=== PATIENT | female | born 1985 | race Caucasian/White ===

== ENCOUNTER 2018-08-14 18:37 | Emergency (ER) | END 2018-08-14 19:50 | disposition home or self-care (01) ==

== ENCOUNTER 2018-11-08 17:41 | Outpatient (CLI) | payer BC ==
[~2018-11-08] VITALS: Ht 157.5 cm; Wt 82.7 kg
[~2018-11-08 17:41] MED LIST: FERR140T3 PO; PREN1TAB62 PO
[2018-11-08 17:57] VITALS: Ht 157.5 cm; Wt 82.7 kg
[2018-11-08 17:58] VITALS: BP 114/69; PULSE 79; RESP 17
--- NOTE | 2018-11-08 21:45 | PN ---
Triage Information Date/Time Nov 08, 2018 Reason for visit: Abd/pelvic pain Weeks of Gestation 20w 6d /Para 8/3 Diabetes: none Hypertention: none Additional information Pt states she has had this pain before she delivered previously, but stronger. She says the pain started at 1100 today and went back and forth between 3/10 and 5/10 pain but was usually mild. Pt reports she has one spot of blood every 2 days for weeks. She reports one this AM. Her last BM was last night. She last had intercourse 2 days ago. She states she was on various buses travelling all day today from 8AM to 5PM. She says she has a DCFS case pending and went to a parenting class today and had another one tonight but missed it in order to come in. She says the pain is equal right = left in the lower abdomen. PMHx: none. PSHx: x 3. NKDA. Objective Vital Signs Date Temp Pulse Resp B/P (MAP) Pulse Ox O2 O2 Flow FiO2 Time Delivery Rate 11/08/18 98.4 79 17 114/69 17:58 (84) Heart Rate: 150's Contractions: None Exam Pt appears very comfortable, is smiling while she talks. Abdomen completely soft and NT and there is no rebound. Uterus is soft to palpation. Deferred pelvic exam. Results/Medications Result Diagram: 11/08/18 1836 Results 24 hrs Laboratory Tests Test 11/08/18 18:00 11/08/18 18:36 Urine Color YELLOW Urine Clarity SLIGHTLY CLOUDY A Urine pH 5.0 Urine Specific [place] 1.027 Urine Ketones 2+ H Urine Nitrite NEGATIVE Urine Bilirubin NEGATIVE Urine Urobilinogen NEGATIVE Urine Leukocyte Esterase TRACE A Urine Microscopic RBC 0 Urine Microscopic WBC 4 Urine Squamous Epithelial Cells FEW Urine Bacteria FEW A Urine Mucus MANY A Urine Hemoglobin NEGATIVE Urine Glucose NEGATIVE Urine Total Protein NEGATIVE White Blood Count 9.4 Red Blood Count 3.72 L Hemoglobin 11.9 L Hematocrit 34.7 L Mean Corpuscular Volume 93.3 Mean Corpuscular Hemoglobin 32.0 Mean Corpuscular Hemoglobin Concent 34.3 Red Cell Distribution Width 12.4 Platelet Count 255 Mean Platelet Volume 11.3 H Immature Granulocytes % 0.400 Neutrophils % 69.9 Lymphocytes % 19.0 Monocytes % 6.6 Eosinophils % 3.7 Basophils % 0.4 Nucleated Red Blood Cells % 0.0 Immature Granulocytes # 0.040 H Neutrophils # 6.6 Lymphocytes # 1.8 Monocytes # 0.6 Eosinophils # 0.4 Basophils # 0.0 Nucleated Red Blood Cells # 0.0 Imaging Results US: CX long and closed and 4.7 cm long. Anterior placenta. No previa. Disposition: Discharge Assessment/Plan A: IUP at 20w 6d. Abdominal pain of unclear etiology. P: Pt feels very comfortable going home and is asking for something to eat prior to going home and appears very comfortable. Reviewed with pt that labs and US appear normal and there is no evidence of infection, or labor. May return if the pain increases and becomes constantly more severe. RAMON PEACE MD Nov 08, 2018 21:25
--- NOTE | 2018-11-08 23:08 | TRIAGE ---
OB Triage Datetime Report Generated by CPN: 11/08/2018 23:08 Datetime: 11/08/2018 20:30 Stage of : OB Triage Datetime: 11/08/2018 19:36 Stage of : OB Triage Monitor Mode: External Duration (sec)2399: 10sec Quality: Mild Pattern: Normal: <= 5 Contractions in 10 Minutes Resting Tone [place]: Relaxed Pain Assessment Pain Scale: 4 Pain Presence: Constant Pain Type: Stabbing Pain Location: Abdomen Datetime: 11/08/2018 18:52 Labor Evaluation Frequency: x3 Monitor Mode: External Duration (sec)2399: 30 Quality: Mild Pattern: Normal: <= 5 Contractions in 10 Minutes Resting Tone [place]: Relaxed Datetime: 11/08/2018 17:52 Heart Rate Comments: fhr 150 by us Datetime: 11/08/2018 17:50 Assessment Type: Triage Maternal Assessment Level of Consciousness: Fully Conscious DTR's/Clonus: DTRs 2+; No Clonus Headache: Denies Blurred Vision: No Respiratory Effort: Unlabored; Regular Rhythm; Equal Expansion Breath Sounds, Left: Clear and Equal Breath Sounds, Right: Clear and Equal Nausea/Vomiting: Denies RUQ Epigastric Pain: Denies Lower Extremities Edema: None Degree: None Upper Extremities Edema: None Degree: None Facial Edema: None Fall Risk Assessment History of Falling: (0) No Secondary Diagnosis: (0) No Ambulatory Aid: (0) Bedrest/Nurse Assist IV Therapy: (0) No Gait: (0) Normal/Bedrest/Immobile Mental Status: (0) Oriented to Own Ability Fall Score: 0 Fall Risk Score Definition: No Risk: No action required Datetime: 11/08/2018 17:49 Time of Arrival: 11/08/2018 17:32 EGA: 20.6 Arrived By: Ambulatory Arrived From: Home Chief Complaint: To ob triage c/o lower abdominal constant pain since 1100 am Movement: Present Contractions: Denies/Absent Rupture of Membranes: Denies Vaginal Bleeding: None Vaginal Discharge: Denies Recent Sexual Intercouse: Denies Abdominal Trauma: Not Applicable Patient Complaints: Other Time Provider Notified: 11/08/2018 18:00 Provider Notified: Dr Short Initial Plan: r/o ptl
== END 2018-11-08 21:37 | disposition home or self-care (01) ==
LOC: OBT 17:41 → L-D 17:42 → OBT 21:37
PROVIDERS: ATTEND Obstetrics & Gynecology
DX: O26.892 Other specified pregnancy related conditions, second trimester (principal); R10.2 Pelvic and perineal pain; Z3A.20 20 weeks gestation of pregnancy
CPT/HCPCS: 76817; 81001; 85025; 87086; Z7500; G0463

== ENCOUNTER 2019-02-07 18:13 | Inpatient (IN) | payer BC ==
[~2019-02-07] VITALS: Ht 152.4 cm; Wt 82.9 kg
--- NOTE | 2019-02-07 19:04 | HP ---
Date/Time of Note Date/Time of Note DATE: 02/07/19 TIME: 19:00 OB - History Hx of Present Chief Complaint: Elevated BP in clinic Estimated Due Date: March 16, 2019 : 10 Para: 3 Spontaneous : 3 Therapeutic : 3 Care: Good Care Ultrasounds: Normal mid trimester US Obstetrical Complications: None Medical Complications: None Past Family/Social History * Past Medical, Surgical, Family and Obstetric Histories reviewed from chart. OB Admission Exam Physical Exam HEENT: WNL Heart: Rhythm Normal Lungs: Clear, Equal Abdomen: WNL Extremities: Normal Reflexes: Normal Heart Rate: 120's Accelerations: Accelerations Present Decelerations: No Decelerations Varibility: Moderate Contractions on Admission: < 5 Minutes Apart OB Assessment/Plan Reason for admission: other Other Assessment: R/ O preeclampsia R/O labor Other plan: Admit PIH labs 24 hour urine collection IM betamethasone IV magnesium sulfate KALEB HANNA MD Feb 07, 2019 19:03
[2019-02-07 19:05] VITALS: BP 143/92; PULSE 72; RESP 17; Ht 152.4 cm; Wt 82.9 kg
[2019-02-07] MEDS ORDERED: MAGNESIUM SULFATE 4 GM/100 ML 100 ML IV SCH (19:30)
[2019-02-07] MEDS: LACTATED RINGER'S 1,000 ML IV SCH (21:38)
[2019-02-07] MEDS: BETAMET NA PHOS/AC(6 MG/ML) 2 ML INJ SYG IM SCH (21:41)
[2019-02-07] MEDS: MAGNESIUM SULFATE 20 GM/500 ML 500 ML IV SCH (22:15)
[2019-02-08] MEDS: LACTATED RINGER'S 1,000 ML IV SCH ×3 (03:06→21:13)
[2019-02-08] MEDS: MAGNESIUM SULFATE 20 GM/500 ML 500 ML IV SCH ×2 (06:27→18:28)
[2019-02-08] MEDS: FERROUS SULFATE (SR) 142 MG TAB PO SCH ×2 (08:57→21:57)
[2019-02-08] MEDS: PRENATAL VITAMIN PO SCH (08:57)
[2019-02-08] MEDS: BETAMET NA PHOS/AC(6 MG/ML) 2 ML INJ SYG IM SCH (21:57)
--- NOTE | 2019-02-08 22:31 | QN ---
Documentation Comment No complaint Afebrile VS Strip Reactive Continue with present care Await result of 24 hour urine collection Repeat labs in AM. KALEB HANNA MD Feb 08, 2019 22:31
[2019-02-09] MEDS: LACTATED RINGER'S 1,000 ML IV SCH ×7 (03:06→20:34)
[2019-02-09] MEDS: FERROUS SULFATE (SR) 142 MG TAB PO SCH ×2 (08:22→21:00)
[2019-02-09] MEDS: PRENATAL VITAMIN PO SCH (08:22)
[2019-02-09] MEDS ORDERED: OXYTOCIN 30 UNITS/LR 500 ML IV PRN ×3 (12:30→23:30)
[2019-02-09] MEDS ORDERED: CARBOPROST 250 MCG INJ IM PRN ×3 (12:30→23:30)
[2019-02-09] MEDS ORDERED: OXYTOCIN 30 UNITS/LR 500 ML IV SCH ×2 (12:30→23:06)
[2019-02-09] MEDS ORDERED: MISOPROSTOL 200 MCG TAB PR PRN ×3 (12:30→23:30)
[2019-02-09] MEDS ORDERED: CEFAZOLIN 2 GM/50 ML (PMX) 50 ML IVPB SCH (12:30)
[2019-02-09] MEDS ORDERED: METHYLERGONOVINE 0.2 MG INJ IM PRN ×2 (12:30)
[2019-02-09] MEDS ORDERED: AMPICILLIN 2 GM/NS (PMX) 100 ML IV SCH (12:30)
[2019-02-09] MEDS ORDERED: AZITHROMYCIN 500MG/NS (PMX) 250 ML IV SCH (12:30)
--- NOTE | 2019-02-09 15:47 | PREAC ---
Date/Time of Note Date/Time of Note DATE: 02/09/19 TIME: 15:46 Anesthesia Eval and Record Evaluation Time Pre-Procedure Interview DATE: 02/09/19 TIME: 15:46 Age 33 Sex female NPO: 8 hrs Preoperative diagnosis iup at 34 weeks with pih Planned procedure repeat c section Past Medical History Past Medical History: Includes GI: Obesity : PIH Surgery & Anesthesia Issues No known issue Meds Anticoagulation: No Beta Raiza within 24 hr: No Reason Beta Raiza not given: Pt. not on B-Raiza Reported Medications Ferrous Sulfate* (Ferrous Sulfate*) 140 Mg Tablet.er, 140 MG PO BID 05/05/13 Vit-Iron Fumarate-FA ( Vitamin Tablet) 1 Each Tablet, 1 EACH PO 05/05/13 Current Medications Lactated Ringer's 1,000 ml @ 125 mls/hr Q8H IV Last administered on 02/09/19at 14:10; Admin Dose 125 MLS/HR; Start 02/07/19 at 19:06 Ferrous Sulfate (Slow Fe) 142 mg BID PO Last administered on 02/09/19at 08:22; Admin Dose 142 MG; Start 02/08/19 at 09:00 Prenat Multivit/ [place]/Iron/Folic Ac () 1 tab DAILY PO Last administered on 02/09/19at 08:22; Admin Dose 1 TAB; Start 02/08/19 at 09:00 Lactated Ringer's 1,000 ml @ 125 mls/hr Q8H IV ; Start 02/09/19 at 12:06 Cefazolin Sodium/ Dextrose 50 ml @ 100 mls/hr ONCE IVPB ; Start 02/09/19 at 12:30 Oxytocin/Lactated Ringer's 500 ml @ 125 mls/hr POST IV ; Start 02/09/19 at 12:30 Oxytocin/Lactated Ringer's 500 ml @ 0 mls/hr ONCE PRN IV .VAGINAL BLEEDING; Start 02/09/19 at 12:30 Methylergonovine Maleate (Methergine) 0.2 mg ONCE PRN IM .VAGINAL BLEEDING; Start 02/09/19 at 12:30 Carboprost Tromethamine (Hemabate) 250 mcg ONCE PRN IM .VAGINAL BLEEDING; Start 02/09/19 at 12:30 Misoprostol (Cytotec) 1,000 mcg ONCE PRN [place] .VAGINAL BLEEDING; Start 02/09/19 at 12:30 Lactated Ringer's 1,000 ml @ 125 mls/hr Q8H IV ; Start 02/09/19 at 12:15 Ampicillin 100 ml @ 100 mls/hr ONCE IV ; Start 02/09/19 at 12:30 Azithromycin 250 ml @ 250 mls/hr ONCE IV ; Start 02/09/19 at 12:30 Oxytocin/Lactated Ringer's 500 ml @ 0 mls/hr ONCE PRN IV .VAGINAL BLEEDING; Start 02/09/19 at 12:30 Methylergonovine Maleate (Methergine) 0.2 mg ONCE PRN IM .VAGINAL BLEEDING; Start 02/09/19 at 12:30 Carboprost Tromethamine (Hemabate) 250 mcg ONCE PRN IM .VAGINAL BLEEDING; Start 02/09/19 at 12:30 Misoprostol (Cytotec) 1,000 mcg ONCE PRN [place] .VAGINAL BLEEDING; Start 02/09/19 at 12:30 Meds reviewed: Yes Allergies Coded Allergies: No Known Drug Allergies (Verified Allergy, Mild, 02/26/12) Allergies Reviewed: Yes Labs/Studies Labs Reviewed: Reviewed by anesthesiologist Result Diagram: 02/09/19 0431 02/09/19 0431 Laboratory Tests 02/09/19 04:31 Blood Bank Test 02/09/19 13:00 Antibody Screen NEGATIVE Blood Type B POSITIVE Rh Immune Globulin Candidate NO test: Positive Pre-procedure Exam Last vitals Vital Signs Date Temp Pulse Resp B/P (MAP) Pulse Ox O2 O2 Flow FiO2 Time Delivery Rate 02/07/19 98.4 72 17 143/92 19:05 (109) Airway: Adequate mouth opening, Adequate thyromental dist Mallampati: Mallampati II Teeth: Normal Lung: Normal Heart: Normal ASA Physical Status ASA physical status: 2 Emergency: None Planned Anesthetic Neuraxial: Spinal Planned Pain Management Sub-arachniod narcotics Pre-operative Attestations Prior to commencing anesthesia and surgery, the patient was re-evaluated, there was verification of: *The patient's identity *The results of appropriate recent lab work and preoperative vital signs *The above evaluation not changing prior to induction *Anesthetic plan, risk benefits, alternative and complications discussed with patient/family; questions answered; patient/family understands, accepts and wishes to proceed. ARTHUR BARKER Feb 09, 2019 15:47
[2019-02-09] MEDS ORDERED: DEXAMETHASONE 4 MG/ML 1 ML INJ ONE (17:47)
[2019-02-09] MEDS ORDERED: ONDANSETRON 4 MG INJ ONE (17:48)
--- NOTE | 2019-02-09 17:53 | QN ---
Documentation Comment Patient's ALT and AST have been increasing. Case discussed with Dr Vasquez ([facility]) who recommends to deliver the patient at this time. Patient is for delivery by repeat . Risks, benefits and alternatives were explained to the patient who ststed she understood and gave informed consent for the procedure. KALEB HANNA MD Feb 09, 2019 17:53
[2019-02-09] MEDS ORDERED: morphine SULFATE/PF (10 MG/10 ML) INJ ONE (18:09)
[2019-02-09] MEDS ORDERED: MIDAZOLAM 1 MG/ML 2 ML INJ ONE (18:19)
--- NOTE | 2019-02-09 18:50 | CONS ---
DATE OF ADMISSION: 02/07/2019 DATE OF CONSULTATION: 02/09/2019 HISTORY OF PRESENT ILLNESS: The patient is currently at 35 weeks, was admitted on Thursday with elevat ed blood pressure. At that time, her AST was elevated; however, the repeat today shows that currentl y the AST is higher, and now currently ALT is also elevated twice normal. Her blood pressures are within moderate to normal range, 24-hour urine for protein is 777 mg. She received betamethasone. RECOMMENDATIONS: I do recommend delivery secondary to severe preeclampsia given the twice higher arnel n normal liver function test and over 34 weeks. Dictated By: SARAVANAN DIXON MD ST/NTS Conf#: [id number] DID#: [id number] CC: KALEB HANNA MD;*End*
--- NOTE | 2019-02-09 19:18 | PAC ---
Date/Time of Note Date/Time of Note DATE: 02/09/19 TIME: 19:18 Post-Anesthesia Notes Post-Anesthesia Note Last documented vital signs Vital Signs Date Temp Pulse Resp B/P (MAP) Pulse Ox O2 O2 Flow FiO2 Time Delivery Rate 02/07/19 98.4 72 17 143/92 1918 (109) Activity: WNL Respiratory function: WNL Cardiovascular function: WNL Mental status: Baseline Pain reasonably controlled: Yes Hydration appropriate: Yes Nausea/Vomiting absent: Yes ARTHUR BARKER Feb 09, 2019 19:18
[2019-02-09] MEDS ORDERED: ZOLPIDEM 5 MG TAB PO PRN (19:30)
[2019-02-09] MEDS ORDERED: ONDANSETRON 4 MG INJ IV PRN (19:30)
[2019-02-09] MEDS ORDERED: HYDROmorphONE 0.5 MG/0.5 ML SYG IV PRN ×2 (19:30)
[2019-02-09] MEDS ORDERED: NALOXONE (0.4 MG/ML) INJ IV PRN (19:30)
--- NOTE | 2019-02-09 19:35 | OPPN ---
Date/Time of Note Date/Time of Note DATE: 02/09/19 TIME: 19:32 Operative Report Planned Procedure Procedure date Feb 09, 2019 Procedure(s) Repeat LTCS and lysis of adhesions Performed by see signature line [employer] Safety Program Coordinator: JORGE L GREER [employer] Safety Program Coordinator none Anesthesiologist: ARTHUR BARKER Pre-procedure diagnosis 35 weeks, previous c/s x3, preeclampsia with severe features [id number] Anesthesia Type: [id number] spinal Post-Procedure Post-procedure diagnosis same, dense pelvic adhesions Findings Live Baby, Apgars 8 and 9. Estimated Blood Loss: other (600 ml) Specimen(s) Placenta Grafts/Implant(s) none Complication(s) none KALEB HANNA MD Feb 09, 2019 19:35
[2019-02-09] MEDS: DIPHENHYDRAMINE 50 MG INJ IV PRN (19:37)
[2019-02-09] MEDS: KETOROLAC 30 MG INJ IV PRN (20:31)
[2019-02-09 22:25] VITALS: BP 94/51; PULSE 62; RESP 18
[2019-02-09] MEDS ORDERED: LACTATED RINGER'S 1,000 ML IV SCH (23:06)
[2019-02-09] MEDS ORDERED: LANOLIN HPA 1 PKT TOP PRN (23:30)
--- NOTE | 2019-02-10 00:27 | OPR ---
DATE OF OPERATION: 02/09/2019 PREOPERATIVE DIAGNOSES: at 35 weeks with previous section x3, preeclampsia with s evere features. POSTOPERATIVE DIAGNOSES: at 35 weeks with previous section x3, preeclampsia with severe features and dense pelvic adhesions. OPERATION: Repeat low transverse section and lysis of adhesions. SURGEON: Kaleb Westbrook MD [employer] LABORER: Sravanthi Park MD ANESTHESIA: Spinal. ANESTHESIOLOGIST: Dr. Dunbar PROCEDURE: The patient was taken to the operating room and placed on the operating table. After suc cessful spinal anesthesia was given, the patient was placed in supine position. The area was prepare d and draped in the usual sterile fashion. Spinal anesthesia was tested and was satisfactory. Using scalpel, Pfannenstiel incision was made about 2 fingerbreadths above the symphysis pubis. The incis ion was carried down to the fascia. The fascia was incised and extended bilaterally with Kemp scisso rs. Two Kochers were used to separate the fascia from the muscle. The muscle was dissected down to peritoneum. The peritoneum was secured with 2 Kellys and incised with Metzenbaum scissors. Upon ent ry into the peritoneal cavity, there were dense pelvic adhesions involving anterior aspect of the rincon yanelis. Using Kemp scissors, sharp lysis of adhesions was performed. Using a scalpel, a small transver se incision was made on the lower segment of the uterus. Upon entering the uterine cavity, bandage s cissors were inserted to extend the incision bilaterally, curved up. Baby was delivered from cephali c presentation. After suctioning clear of amniotic fluid, baby was handed off to the team i n attendance. Apgars were 8 and 9. The placenta was delivered without difficulty. The uterus was c losed with #1 Monocryl continuous locked. After assuring hemostasis, both ovaries and tubes were ins pected, all looked normal. The peritoneum was closed with 2-0 Vicryl continuous. Fascia was closed with #1 Vicryl continuous in 2 segments. Subcutaneous tissue was reapproximated with 2-0 plain. The skin was closed with nisreen. ESTIMATED BLOOD LOSS: 600 mL. COUNTS: All counts were correct. Dictated By: KALEB GOODMAN/NTS Conf#: [id number] DID#: [id number]
[2019-02-10] MEDS: KETOROLAC 30 MG INJ IV PRN ×3 (02:14→18:00)
[2019-02-10] MEDS: DIPHENHYDRAMINE 50 MG INJ IV PRN (02:14)
[2019-02-10 03:50] VITALS: BP 138/69; PULSE 58; RESP 18
[2019-02-10 08:35] VITALS: BP 133/60; PULSE 95; RESP 18
[2019-02-10] MEDS ORDERED: LACTATED RINGER'S 1,000 ML IV SCH (09:00)
[2019-02-10 12:00] VITALS: BP 130/65; PULSE 98; RESP 16
[2019-02-10 15:43] VITALS: BP 117/76; PULSE 73; RESP 20
--- NOTE | 2019-02-10 18:25 | QN ---
Documentation Comment No complaint Afebrile VSS Abdomen soft ND POD #1 Stable Ambulate Advance diet. KALEB HANNA MD Feb 10, 2019 18:25
[2019-02-10] MEDS ORDERED: OXYCODONE/ACETAMINOPHEN (5/325) TAB PO PRN (19:30)
[2019-02-10 20:36] VITALS: BP 105/54; PULSE 59; RESP 18
[2019-02-10] MEDS: IBUPROFEN 800 MG TAB PO SCH (21:31)
[2019-02-10] MEDS: FERROUS SULFATE (EC) 325 MG TAB PO SCH (21:31)
[2019-02-10] MEDS: SENNA/DOCUSATE NA (8.6MG/50MG) TAB PO SCH (21:31)
[2019-02-10 23:56] VITALS: BP 109/63; PULSE 77; RESP 18
[2019-02-11 06:04] VITALS: BP 118/62; PULSE 51; RESP 16
[2019-02-11] MEDS: IBUPROFEN 800 MG TAB PO SCH ×3 (06:07→22:00)
[2019-02-11 09:00] VITALS: BP 105/66; PULSE 62; RESP 18
[2019-02-11] MEDS: SENNA/DOCUSATE NA (8.6MG/50MG) TAB PO SCH ×2 (10:29→21:21)
[2019-02-11] MEDS: FERROUS SULFATE (EC) 325 MG TAB PO SCH ×3 (10:29→21:21)
[2019-02-11] MEDS: OXYCODONE/ACETAMINOPHEN (5/325) TAB PO PRN ×3 (13:33→23:43)
[2019-02-11 16:18] VITALS: BP 130/80; PULSE 79; RESP 18
--- NOTE | 2019-02-11 19:21 | QN ---
Documentation Comment No complaint Afebrile VSS Abdomen soft ALT and AST improving Continue with present care. KALEB HANNA MD Feb 11, 2019 19:21
[2019-02-11 20:20] VITALS: BP 129/85; PULSE 62; RESP 19
[2019-02-12 04:00] VITALS: BP 119/78; PULSE 70; RESP 18
[2019-02-12] MEDS: IBUPROFEN 800 MG TAB PO SCH ×3 (06:00→21:39)
[2019-02-12 08:30] VITALS: BP 137/88; PULSE 87; RESP 20
[2019-02-12] MEDS: FERROUS SULFATE (EC) 325 MG TAB PO SCH ×3 (09:00→21:39)
[2019-02-12] MEDS: SENNA/DOCUSATE NA (8.6MG/50MG) TAB PO SCH ×2 (09:00→21:39)
[2019-02-12] MEDS ORDERED: DIPHTH/TET/ACEL PERTUSS (ADULT) 0.5 ML VIAL IM* ONE (09:00)
[2019-02-12] MEDS: OXYCODONE/ACETAMINOPHEN (5/325) TAB PO PRN ×2 (11:46→15:23)
--- NOTE | 2019-02-12 15:56 | QN ---
Documentation Comment No complaint Afebrile VSS Abdomen soft Stable Continue present care. KALEB HANNA MD Feb 12, 2019 15:56
[2019-02-12 16:20] VITALS: BP 130/82; PULSE 72; RESP 18
[2019-02-12 20:15] VITALS: BP 139/88; PULSE 66; RESP 19
[2019-02-13] MEDS: OXYCODONE/ACETAMINOPHEN (5/325) TAB PO PRN ×2 (02:28→08:50)
[2019-02-13 04:00] VITALS: BP 134/62; PULSE 77; RESP 19
[2019-02-13] MEDS: IBUPROFEN 800 MG TAB PO SCH ×3 (06:00→22:30)
[2019-02-13] MEDS: SENNA/DOCUSATE NA (8.6MG/50MG) TAB PO SCH ×2 (08:50→21:03)
[2019-02-13] MEDS: FERROUS SULFATE (EC) 325 MG TAB PO SCH ×3 (08:50→21:03)
[2019-02-13 08:51] VITALS: BP 147/80; PULSE 81; RESP 20
[2019-02-13] MEDS ORDERED: DIPHTH/TET/ACEL PERTUSS (ADULT) 0.5 ML VIAL IM* ONE (09:00)
[2019-02-13 14:19] VITALS: BP 118/77; PULSE 67; RESP 18
--- NOTE | 2019-02-13 15:04 | QN ---
Documentation Comment no complaint Afebrile BP 147/80 Abdomen soft Stable Continue to monitor BP KALEB HANNA MD Feb 13, 2019 15:04
[2019-02-13 18:59] VITALS: BP 117/62; PULSE 62; RESP 20
[2019-02-13 19:35] VITALS: BP 142/77; PULSE 59; RESP 18
[2019-02-14 04:30] VITALS: BP 128/82; PULSE 58; RESP 18
[2019-02-14] MEDS: IBUPROFEN 800 MG TAB PO SCH ×2 (06:10→14:00)
[2019-02-14] MEDS: SENNA/DOCUSATE NA (8.6MG/50MG) TAB PO SCH (09:00)
[2019-02-14] MEDS: FERROUS SULFATE (EC) 325 MG TAB PO SCH ×2 (10:36→12:23)
[2019-02-14 11:28] VITALS: BP 136/76; PULSE 56; RESP 20
--- NOTE | 2019-02-14 13:46 | DS ---
Date/Time of Note Date/Time of Note DATE: 02/14/19 TIME: 13:46 Obstetrical Discharge Record Final Diagnosis Final Diagnosis: delivered Section Section: Repeat Complications Preg induced Hypertension Tocolytics: Magnesium Sulfate Condition on Discharge Physical Assessment Voiding: Yes Bowel Movement: Yes Breast: Soft, non-tender, Filling Fundus: Firm Abdomen and Incision: Incision intact Calf Tenderness: No Patient Condition: Stable KALEB HANNA MD Feb 14, 2019 13:46
--- NOTE | 2019-02-15 21:19 | DELSUM ---
Delivery Summary A-C Datetime Report Generated by CPN: 02/15/2019 21:19 DELIVERY PERSONNEL Neurodiagnostic Tech: Brian Obi MATERNAL INFORMATION Delivery Anesthesia: Spinal Medications in Delivery: see anesthesia record Delivery QBL (ml): 600 Placenta Cultured: No Maternal Complications: Other Other Maternal Complications: PIH with elevated liver enzymes RN Comments: GBS UNKNOWN,B POS INSURANCE AGENTS SUPERVISOR PRESENT FOR DELIVERY LABOR SUMMARY EDC: 03/16/2019 00:00 No. Babies in Womb: 1 Attempted: No Labor Anesthesia: None LABOR INFORMATION Reason for Induction: Not Applicable Oxytocin: N/A Group B Beta Strep: Not Done Antibiotics # of Doses: 2 Antibiotics Time of Last Dose: 02/09/2019 17:45 Steroids Given: Full Course; <24Hrs before Delivery Reason Steroids Not Administered: Other MEMBRANES Membranes Rupture Method: Artificial Rupture of Membranes: 02/09/2019 18:15 Length of Rupture (hr): 0.02 Amniotic Fluid Color: Clear Amniotic Fluid Amount: Moderate Amniotic Fluid Odor: None STAGES OF LABOR Stage 3 hr: 0 Stage 3 min: 4 CSECTION DELIVERY Primary Indication: Other Other Primary Indication: PIH Secondary Indication: Other Other Secondary Indication: SUSPECTED IUGR, [id number] CSection Urgency: Non Elective CSection Incidence: Repeat Labor: No Labor Elective: N/A CSection Incision: Lower Uterine Transverse BABY A INFORMATION Delivery Date/Time: 02/09/2019 18:16 Method of Delivery: Born in Route : No : N/A Forceps: N/A Vacuum Extraction: N/A Shoulder Dystocia : N/A SHOULDER DYSTOCIA BABY A Infant Delivery Date/Time: 02/09/2019 18:16 PRESENTATION/POSITION BABY A Presentation: Other Cephalic Presentation: N/A Breech Presentation: Complete PLACENTA INFORMATION BABY A Placenta Delivery Time : 02/09/2019 18:20 Placenta Method of Delivery: Manual Removal Placenta Status: Delivered SCORES BABY A Heart Rate 1 min: >100 bpm Resp Effort 1 min: Good Cry Reflex Irritability 1 min: Cough/Sneeze/Pulls Away Muscle Tone 1 min: Some Flexion of Extrem Color 1 min: Body [place], Extremit Blue Resuscitation Effort 1 min: Tactile Stimulation SCORE 1 MIN: 8 Heart Rate 5 min: >100 bpm Resp Effort 5 min: Good Cry Reflex Irritability 5 min: Cough/Sneeze/Pulls Away Muscle Tone 5 min: Active Motion Color 5 min: Body [place], Extremit Blue Resuscitation Effort 5 min: Tactile Stimulation SCORE 5 MIN: 9 INFORMATION BABY A Gestational Age at Delivery: 35.0 Gestational Status: Late - 34- 36.6 Weeks Infant Outcome : Liveborn Condition : Fair Sex: Female IDENTIFICATION/MEDS BABY A ID Band Number: [id number] ID Band Location: Other Sensor Applied: No Vitamin K Given : Not Given Erythromycin Given: Not Given WEIGHT/LENGTH BABY A Infant Birthweight (gm): 2175 Infant Weight (lb): 4 Infant Weight (oz): 13 Infant Length (in): 18.00 Length (cm): 45.72 CORD INFORMATION BABY A No. Cord Vessels: 3 Nuchal Cord : N/A Cord Blood Taken: Yes Infant Suction: Mouth; Nose ASSESSMENT BABY A Complications: None Physical Findings at Delivery: Within Normal Limits Infant Respirations: Appears Normal Makeup Instructor/ALS Called : Yes Care By: NICU TEAM/CHLOE RN Transferred To: NICU
== END 2019-02-14 20:20 | disposition home or self-care (01) | DRG 788 ==
LOC: OBT 18:13 → L-D 18:14 → OBT 18:58 → L-D 19:00 → PP1 20:15 → L-D 02-09 12:03 → PP1 02-09 14:28 → L-D 02-09 14:35 → PP1 02-09 22:50
PROVIDERS: ADMIT Obstetrics & Gynecology; ATTEND Obstetrics & Gynecology
PROC: 10D00Z1 Extraction of Products of Conception, Low, Open Approach (ICD-10-PCS; principal; 2019-02-09 17:00)
DX: O34.211 Maternal care for low transverse scar from previous cesarean delivery (principal); O14.14 Severe pre-eclampsia complicating childbirth; O99.89 Other specified diseases and conditions complicating pregnancy, childbirth and the puerperium; N73.6 Female pelvic peritoneal adhesions (postinfective); Z3A.35 35 weeks gestation of pregnancy; Z37.0 Single live birth
CPT/HCPCS: 76815; 76818; 80053; 81001; 81003; 82575; 83735; 84156; 84560; 85025; 85610; 85730; 86592; 86850; 86900; 86901; 87340; 88307; 99464; G0463; J0456; J0690; J0702; J1100; J1170; J1200; J1885; J2250; J2274; J2405; J2590; J3475; J7120